=== PATIENT | female | born 1955 | race Hispanic/Latino ===

== ENCOUNTER 2020-10-07 10:22 | Outpatient (CLI) | payer MEDICARE, OTHER ==
--- NOTE | 2020-10-07 11:51 | Mammography Report ---
DIGITAL DIAGNOSTIC MAMMOGRAM WITH CAD CONVENTIONAL, 10/07/2020 CLINICAL INFORMATION / INDICATION: HISTORY OF BREAST CANCER/BREAST PAIN TECHNIQUE: Digital bilateral mammographic imaging was performed. This examination was interpreted with the benefit of Computer-aided Detection analysis. COMPARISON: Bilateral mammography 04/17/18 and right breast ultrasound 09/02/20. FINDINGS: Breast Density: The breasts are almost entirely fatty. No dominant mass, suspicious calcifications or architectural distortion in the left breast. There are postlumpectomy changes in the right upper outer quadrant posteriorly. There are 2 adjacent poorly defined masses at the lumpectomy site which are new or are much larger than on the prior study . The abnormalities in each measure 3 to 4 cm in size and have a combined dimension of approximately 7.2 cm. The recent ultrasound demonstrated a 3 cm hypoechoic irregular mass in this region. There are associated calcifications which are nonspecific. IMPRESSION: 2 adjacent developing/confluent masses in the right upper outer quadrant at the lumpectom y site are characteristic of local tumor recurrence. Biopsy is recommended. Follow up recommendation: Surgical consult BI-RADS Category 5: Highly Suggestive of Malignancy. A "normal" or negative report should not discourage follow up or biopsy of a clinically significant f inding. A written summary of these findings will be mailed to the patient. The patient will be entered into a mammography reporting system which will generate a reminder letter for the patient's next appointmen t at the appropriate interval. According to the [employer], yearly mammograms are recommended starting at age 40 and continuing as long as a woman is in good health. Breast MRI is recommended for women with an joy roximately 20-25% or greater lifetime risk of breast cancer, including women with a strong family his tory of breast or ovarian cancer and women who have been treated for Hodgkin's disease. Signer Name: Fletcher Nunez MD Signed: 10/07/2020 11:46 AM Workstation Name: [id number]
--- NOTE | 2020-10-07 12:55 | Ultrasound Report ---
ULTRASOUND BREAST RIGHT COMPLETE, 09/12/2009 CLINICAL INFORMATION / INDICATION: Right breast pain and hx breast cancer. TECHNIQUE: Complete sonographic evaluation of all 4 quadrants and retroareolar region was performed. COMPARISON: Bilateral mammography earlier today and right breast ultrasound 09/02/20.. FINDINGS: There is a 2.5 cm irregular hypoechoic solid mass at the 11:00 position 11 cm from the nipple in the region of the patient's scar. There is also posterior shadowing in the region of the patient's scar. No other abnormality is seen. There is no evidence of axillary adenopathy. IMPRESSION: 2.5 cm irregular hypoechoic solid mass/posterior shadowing in the right upper outer quadr ant at the lumpectomy site. The mammographic appearance is larger and more worrisome in appearance th an the ultrasound findings. Biopsy utilizing mammographic guidance is recommended. Follow up recommendation: Biopsy BI-RADS Category 5: Highly Suggestive of Malignancy. A normal or "negative" report should not preclude biopsy or follow-up of a clinically suspicious find ing. Signer Name: Fletcher Nunez MD Signed: 10/07/2020 12:50 PM Workstation Name: [id number]
== END 2020-10-07 10:23 | disposition home or self-care (01) ==
LOC: SPVWC 10:22
PROVIDERS: ATTEND Surgery
DX: N63.11 Unspecified lump in the right breast, upper outer quadrant (principal); N64.4 Mastodynia; Z85.3 Personal history of malignant neoplasm of breast; Z90.12 Acquired absence of left breast and nipple
CPT/HCPCS: 77066

== ENCOUNTER 2020-10-08 12:20 | Outpatient (CLI) | payer MEDICARE, OTHER ==
--- NOTE | 2020-10-08 14:18 | Ultrasound Report ---
Ultrasound-guided right breast biopsy HISTORY: OTHER ABNORMAL AND INCONCLUSIVE FINDINGS. Patient with history of breast cancer postlumpect tricia in the past presents with pain and nodularity under the scar site in the upper outer right breast . Mammogram and ultrasound done yesterday show a worrisome area which has prompted a need for biopsy. COMPARISON: Mammogram and right breast ultrasound from yesterday PROCEDURE: The risks (including but not limited to bleeding and infection) and benefits were explain ed to the patient and informed consent was obtained. A time out procedure was performed. The proced ure site was prepped and draped in the usual sterile fashion and lidocaine was used for local anesthe clif. Utilizing ultrasound guidance and a right lateral approach, a 14-gauge biopsy needle was used to obta in 3 separate biopsy samples, each of which were approximately 1 cm and demonstrated solid white-appe aring tissue. At the conclusion of the exam, a biopsy clip was placed. The clip was placed directly w ithin the area of interest and images were obtained to document. The patient tolerated the procedure well with no complications. IMPRESSION: Successful right breast mass biopsy. An addendum will be performed once pathology is returned. Signer Name: Jose Carlos Vasquez MD Signed: 10/08/2020 2:14 PM Workstation Name: [id number]
== END 2020-10-08 12:21 | disposition home or self-care (01) ==
LOC: US 12:20
PROVIDERS: ATTEND Surgery
DX: N63.11 Unspecified lump in the right breast, upper outer quadrant (principal); N64.89 Other specified disorders of breast; N64.1 Fat necrosis of breast
CPT/HCPCS: 88305

== ENCOUNTER 2020-10-29 14:09 | Outpatient (CLI) | payer MEDICARE, OTHER ==
--- NOTE | 2020-10-31 09:02 | Magnetic Resonance Report ---
MRI BREAST BILATERAL WITH AND WITHOUT CONTRAST, 10/29/2020 CLINICAL INFORMATION / INDICATION: INCONCLUSIVE MAMMOGRAM. Patient has history of right breast cancer status post lumpectomy and chemoradiation in 2013. Patient had recent diagnostic mammogram and right breast ultrasound which demonstrated findings worrisome for local tumor recurrence at the surgical s ite in the upper outer quadrant of the right breast. Patient underwent right breast ultrasound guided biopsy with pathology demonstrating benign fibrofatty tissue with fat necrosis, considered discordan t with the imaging appearance, and therefore presents for further evaluation with MRI. TECHNIQUE: Axial T1 and T2-weighted fat sat images were obtained precontrast. Gadolinium-based contra st was injected intravenously and serial axial T1 weighted images with fat saturation were obtained. 3-D MIP projections, kinetic analysis, and subtraction imaging were utilized to evaluate. A dedicated 8-channel breast coil was used for image acquisition. COMPARISON: Prior mammogram 10/07/2020 FINDINGS: BREAST DENSITY: The breasts are almost entirely fatty. BACKGROUND ENHANCEMENT: Low level background enhancement within both breasts. RIGHT BREAST: Postsurgical change related to prior lumpectomy is seen in the posterior upper outer qu adrant of the right breast. There is minimal peripheral enhancement surrounding the surgical site, bu t no suspicious masslike enhancement identified. No additional suspicious areas of enhancement identi fied in the right breast. Diffuse right breast skin thickening is likely related to prior treatment. LEFT BREAST: No dominant mass or suspicious area of enhancement in the left breast. AXILLAE: No pathologically enlarged axillary lymph nodes. ADDITIONAL FINDINGS: Limited imaging of the thorax and upper abdomen demonstrates no focal abnormalit y. A Mediport is seen along the medial right chest wall. IMPRESSION: 1. No suspicious masslike enhancement identified at the surgical site in the upper outer quadrant of the right breast. While the timeframe for development of increased density at the surgical site mammo graphically is somewhat atypical, given the benign biopsy and the reassuring MRI appearance, this mos t likely reflects evolving postsurgical/posttreatment change and fat necrosis. Recommend 6 month foll ow-up right diagnostic mammogram to ensure stability. 2. No suspicious MRI abnormality identified in the left breast. Follow up recommendation: Short term follow up in 6 months. BI-RADS Category 3: Probably Benign. Followup in 6 months. Signer Name: Shea Leung MD Signed: 10/31/2020 8:57 AM Workstation Name: [email or web address]
== END 2020-10-29 14:10 | disposition home or self-care (01) ==
LOC: SPVIMAG 14:09
PROVIDERS: ATTEND Surgery
DX: R92.2 Inconclusive mammogram (principal); Z85.3 Personal history of malignant neoplasm of breast; Z98.890 Other specified postprocedural states; Z95.828 Presence of other vascular implants and grafts
CPT/HCPCS: A9577; C8908; 77049